=== PATIENT | female | born 1980 | race Caucasian/White ===

== ENCOUNTER 2016-05-27 22:52 | Inpatient (IN) | payer OTHER ==
[2016-05-27] MEDS ORDERED: OXYTOCIN/RINGERS LACTATE 1,000 ML IV PRN (23:50)
[2016-05-27] MEDS ORDERED: LR 1,000 ML IV PRN (23:50)
[2016-05-27] MEDS ORDERED: TERBUTALINE SULFATE 1 MG/ML VIAL IV PRN (23:50)
[2016-05-28 00:52] LABS: % IMMATURE GRANULYOCYTES 1.1 % (0.0-1.1); ABSOLUTE IMMATURE GRANULOCYTES 0.18 10^3/uL (0.00-0.10); ADD DIFF? NO; ADD MORPH? NO; ADD SCAN? NO; ATYPICAL LYMPHOCYTE FLAG 0 (0-99); FRAGMENT RBC FLAG 0 (0-99); HEMATOCRIT 43.7 % (38.0-47.0); HEMOGLOBIN 14.6 g/dL (12.6-16.3); LEFT SHIFT FLG 10 (0-99); LIPEMIA HEMOLYSIS FLAG 80 (0-99); MEAN CELL HEMOGLOBIN 30.8 pg (27.9-34.1); MEAN CELL HEMOGLOBIN CONCENTR. 33.4 g/dL (32.4-36.7); MEAN CELL VOLUME 92.2 fL (81.5-99.8); MEAN PLATELET VOLUME 11.5 fL (8.7-11.7); PLATELET CLUMPS FLAG 0 (0-99); PLATELET COUNT 191 10^3/uL (150-400); RED BLOOD CELL COUNT 4.74 10^6/uL (4.18-5.33); RED CELL DISTRIBUTION WIDTH 13.9 % (11.5-15.2)
--- NOTE | 2016-05-28 01:08 | GHP ---
DATE OF ADMISSION: 05/27/2016 CHIEF COMPLAINT: Leakage of fluid. HISTORY OF PRESENT ILLNESS: The patient is a 36-year-old, 3, para 1, abortus 1, female at 3 8 weeks and 6 days estimated gestational age with estimated due date of June 04, 2016, who presents to labor and delivery with complaints of leakage of fluid. The patient reports having a gush of abdirashid ar fluid around 8:30 p.m. on the night of admission, with further leakage as well. This was confirm ed on admission with evidence of gross ruptured membranes. She reports contractions have begun in t he last hour. She reports contractions every couple of minutes at this time. She denies any vagina l bleeding and reports good movement. No other complaints. GBS negative. HISTORY: Spontaneous vaginal delivery in February 2013. History of spontaneous in 2014. This has been complicated by a single umbilical artery with normal growth scans throughout her and normal genetic testing. She also has gestational diabetes, type A1 controlled wi th diet. She has received the flu and Tdap vaccines. LABS: Blood type O positive, antibody screen negative, hematocrit 41, Pap normal, varicell a immune, rubella immune, RPR nonreactive, urine culture negative, hepatitis B surface antigen negat terry. HIV negative. Gonorrhea and chlamydia negative. One-hour GTT of 147 and 3-hour GTT of 74, 16 3, 164 and 149. GBS negative. PAST MEDICAL HISTORY: None. PAST SURGICAL HISTORY: None. ALLERGIES: No known drug allergies. OBJECTIVE: VITAL SIGNS: Blood pressure 124/79, heart rate 86, respiratory rate 18, temperature 36. 5 degrees Celsius. heart rate tracing 120s with moderate variability, and accelerations prese nt and no decelerations. Contractions q.3 minutes on admission, but then slightly irregular on the monitor. GENERAL: No acute distress. Well-developed, well-nourished female. CHEST: Clear to aus cultation bilaterally. CARDIOVASCULAR: Regular rate and rhythm. ABDOMEN: Gravid and nontender. GENITOURINARY: Cervix 3 cm, 60% effaced, and -3 station. ASSESSMENT: Patient is a 36-year-old, 3, para 1, abortus 1, female with spontaneous rupture of membranes at term. PLAN: 1. status is currently reassuring. 2. Spontaneous ruptured membranes confirmed. Patient appears to be pepe now. We will liz nue with expected management of labor and augment if needed with Pitocin. 3. GBS negative. /[id number]/MODL
[2016-05-28] MEDS ORDERED: BUPIVACAINE 0.25% 30 ML SDV ONE (02:13)
[2016-05-28] MEDS ORDERED: fentaNYL 2MCG/ML/BUP 0.1% RTU 100 ML BAG EP ONE (02:13)
[2016-05-28] MEDS ORDERED: PHENYLEPHRINE HCL 100 MCG/ML SYR ONE (02:13)
[2016-05-28] MEDS ORDERED: AMMONIA AROMATIC 1 EACH AMP IH ONE (02:14)
[2016-05-28] MEDS ORDERED: LIDOCAINE 1% 30 ML SDV ONE (02:14)
[2016-05-28] MEDS ORDERED: TERBUTALINE SULFATE 1 MG/ML VIAL ONE (02:14)
[2016-05-28] MEDS ORDERED: OXYTOCIN 10 UNIT/ML VIAL ONE (02:15)
[2016-05-28] MEDS ORDERED: MISOPROSTOL 200 MCG TAB ONE (02:15)
[2016-05-28] MEDS ORDERED: fentaNYL 100 MCG/2 ML INJ ONE (02:23)
[2016-05-28] MEDS ORDERED: ONDANSETRON 4 MG/2 ML VIAL IVP PRN (03:17)
[2016-05-28] MEDS ORDERED: PHENYLEPHRINE HCL 100 MCG/ML SYR IVP PRN (03:17)
[2016-05-28] MEDS ORDERED: NALOXONE HCL 0.4 MG/ML INJ IVP PRN (03:17)
[2016-05-28] MEDS ORDERED: METOCLOPRAMIDE 10 MG/2 ML VIAL IVP PRN (03:17)
--- NOTE | 2016-05-28 03:17 | PREANESOB ---
Obstetric Pre-Anesthesia Info - General Info Proposed Procedure: SAB for labor : 3 Para: 1 - Info Status: Full Term, Wagner Monitors: External FHR Pattern: Reassuring - Labor Status Cervical Dilation per last OB SVE: 9 PIH: No Magnesium Sulfate in Use: No Indications for Labor Analgesia: Pain Control Labor Epidural: No (Cervical dilation nearly complete, rapid labor. Will do SAB instead of epidural.) Anesthesia Allergies/Adverse Reactions: Allergy/AdvReac Type Severity Reaction Status Date / Time No Known Allergies Allergy Verified 12/19/14 06:13 Visit Medications: Generic Name Dose Route Start Last Admin Trade Name Freq PRN Reason Stop Dose Admin Lactated Ringer's 1,000 mls @ 0 mls/hr 05/27/16 23:50 Lr IV 11/23/16 23:49 PRN PRN SEE PROTOCOL CONDITIONS Protocol Per Protocol Oxytocin/Lactated Ringer's 1,000 mls @ 150 mls/hr 05/27/16 23:50 Pitocin 20 Units/Lr (Premix) IV PRN PRN Post- bleeding Ibuprofen 600 mg 05/27/16 23:50 Motrin PO 11/23/16 23:49 Q6HRS PRN post , inflammation Terbutaline Sulfate 0.25 mg 05/27/16 23:50 Brethine IV 11/23/16 23:49 ONCE PRN Tachysystole Discontinued Medications Generic Name Dose Route Start Last Admin Trade Name Freq PRN Reason Stop Dose Admin Ammonia (Aromatic Spirit) Confirm 05/28/16 02:14 Ammonia Aromatic Administered 05/28/16 02:15 Dose 1 each IH .STK-MED ONE Bupivacaine HCl Confirm 05/28/16 02:13 Sensorcaine 0.25% Sdv Administered 05/28/16 02:14 Dose 30 ml .ROUTE .STK-MED ONE Ephedrine Sulfate Confirm 05/28/16 02:14 Ephedrine Sulfate Administered 05/28/16 02:15 Dose 50 mg .ROUTE .STK-MED ONE Fentanyl Confirm 05/28/16 02:23 Sublimaze Administered 05/28/16 02:24 Dose 100 mcg .ROUTE .STK-MED ONE Fentanyl/Bupivacaine HCl Confirm 05/28/16 02:13 Fentanyl/Bupivacaine/Ns 2 Mcg/Ml 0.1% (Premix Administered 05/28/16 02:14 Dose 100 ml EP .STK-MED ONE Lidocaine HCl Confirm 05/28/16 02:14 Lidocaine Hcl 1% Administered 05/28/16 02:15 Dose 30 ml .ROUTE .STK-MED ONE Misoprostol Confirm 05/28/16 02:15 Cytotec Administered 05/28/16 02:16 Dose 1,000 mcg .ROUTE .STK-MED ONE Oxytocin Confirm 05/28/16 02:15 Pitocin Administered 05/28/16 02:16 Dose 30 unit .ROUTE .STK-MED ONE Phenylephrine HCl Confirm 05/28/16 02:13 Sony-Synephrine Administered 05/28/16 02:14 Dose 1,000 mcg .ROUTE .STK-MED ONE Terbutaline Sulfate Confirm 05/28/16 02:14 Brethine Administered 05/28/16 02:15 Dose 1 mg .ROUTE .STK-MED ONE - Focused Exam Height/Weight (Nursing): Height 167.64 cm Weight 78.471 kg Labs: 05/28/16 00:10 Patient ABO/Rh O POSITIVE 05/28/16 00:10
--- NOTE | 2016-05-28 03:19 | POSTANESTH ---
Post Anesthetic Evaluation Cardiovascular Status: Normal, Stable, Similar to Pre-Op Cond Respiratory Status: Normal, Stable, Similar to Pre-op Cond. Level of Consciousness/Mental Status: Can Participate in Eval, Alert and Oriented Pain Control: Adequate, Prn Tx Ordered Nausea/Vomiting Control: Adequate, Prn Tx Ordered Complications Possibly Related to Anesthesia: None Noted (Excellent analgesia within 5 minutes of spinal injection. Delivered about 20 minutes later.)
--- NOTE | 2016-05-28 03:24 | OBPROC ---
- Labor and Delivery Onset of Contractions Date: 05/27/16 Onset of Contractions Time: 21:00 Onset of Contractions Type: Spontaneous Rupture of Membranes Date: 05/27/16 Rupture of Membranes Time: 20:30 Rupture of Membranes Type: Spontaneous Amniotic Fluid Color: Clear Dilation Complete Time: 02:45 Delivery Type: Spontaneous Placenta Delivery Date: 05/28/16 Placenta Delivery Time: 02:57 Episiotomy/Laceration: 1st Degree, Other (Specify) (midline labial) Repair: 3-0, Vicryl (figure of eight stitch x 2 to reapproximate 1st degree; one interrupted to reapproximate labial laceration. all hemostatic.) EBL: 200cc Complications: Other (Specify) (compound left arm) - Medications Labor Augmentation/Induction Meds Used: None Anesthesia: Spinal - [place]haw Info B Delivery Date: 05/28/16 Delivery Time: 02:52 Sex of : Female Score (1 Min): 8 Score (5 Min): 9 (Patient pushed very well and delivered her baby easily in PER position w/ left anterior compound hand. Baby delivered, placed on maternal abdomen, and cord clamped x 2 and cut after delayed cord clamping. Cord blood obtained, placenta delivered easily and intact. Cervix and vaginal redd intact, perineum had a small 1st degree and labial tear that were repaired and hemostatic.)
[2016-05-28] MEDS ORDERED: ACETAMINOPHEN 325 MG TAB PO PRN (03:25)
[2016-05-28] MEDS ORDERED: SIMETHICONE 80 MG TAB CHEW PO PRN (03:25)
[2016-05-28] MEDS ORDERED: HYDROCORTISONE 0.5% CREAM TP PRN (03:25)
[2016-05-28] MEDS ORDERED: LR 500 ML IV SCH (03:30)
[2016-05-28] MEDS ORDERED: METHYLERGONOVINE MAL 0.2 MG/ML INJ ONE (05:23)
[2016-05-28] MEDS ORDERED: HEMABATE 250 MCG/1 ML AMP IM ONE (05:32)
[2016-05-28] MEDS ORDERED: DIPHENOXYLATE/ATROPINE LOMOTIL 1 TAB PO PRN (05:41)
[2016-05-28] MEDS ORDERED: DIPHENOXYLATE/ATROPINE LOMOTIL 1 TAB ONE (05:44)
[2016-05-28] MEDS ORDERED: OXYTOCIN/RINGERS LACTATE 1,000 ML IV SCH (06:30)
[2016-05-28] MEDS: METHYLERGONOVINE MAL 0.2 MG TAB PO SCH ×5 (06:42→21:54)
[2016-05-28] MEDS: IBUPROFEN 600 MG TAB PO PRN ×3 (08:07→20:25)
[2016-05-28 15:38] VITALS: O2SAT 95
[2016-05-29] MEDS: IBUPROFEN 600 MG TAB PO PRN ×4 (01:45→21:46)
[2016-05-29] MEDS: METHYLERGONOVINE MAL 0.2 MG TAB PO SCH (01:45)
[2016-05-29] MEDS: DOCUSATE SODIUM 100 MG CAP PO PRN ×2 (08:14→21:46)
--- NOTE | 2016-05-29 10:04 | SOAPPROG ---
SOAP Progress Note Assessment/Plan: Assessment: PPD#1, complicated by PPH, EBL 1300 Doing well Vitals stable, bleeding minimal, denies symptoms of anemia s/p tdap and flu Rh pos, GBS neg Plan: Routine care Plan discharge PPD#2 05/29/16 10:01 Subjective: Feels great. Baby is under bili lights. Minimal bleeding. Milk hasn't come in yet, doing donor milk. Objective: Vital Signs Temp Pulse Resp BP Pulse Ox 36.2 C 85 16 109/68 95 05/29/16 08:00 05/29/16 08:00 05/29/16 08:00 05/29/16 08:00 05/29/16 08:00 Laboratory Results 05/28/16 00:10 05/28/16 05/29/16 05/30/16 05:59 05:59 05:59 Intake Total 2600 Output Total 3850 Balance -1250 Gen: alert, awake, ambulating Breasts: soft Abd: soft, nontender Ext: no edema ICD10 Worksheet Patient Problems: Problems Problem Status Onset Active labor at term Acute Vaginal delivery Acute
[2016-05-29] MEDS: HYDROCODONE/APAP 5/325 TAB PO PRN ×2 (16:40→21:46)
[2016-05-30] MEDS: HYDROCODONE/APAP 5/325 TAB PO PRN (02:51)
[2016-05-30] MEDS: IBUPROFEN 600 MG TAB PO PRN ×2 (06:12→12:18)
[2016-05-30] MEDS: DOCUSATE SODIUM 100 MG CAP PO PRN (09:30)
[2016-05-30 09:55] VITALS: BP 115/76; PULSE 78; RESP 17; TEMP 97.8
--- NOTE | 2016-05-30 10:45 | SOAPPROG ---
SOAP Progress Note Assessment/Plan: Assessment: PPD#2, complicated by PPH, EBL 1300 Doing well Vitals stable, bleeding minimal, denies symptoms of anemia s/p tdap and flu Rh pos, GBS neg Plan: Discharge home. Pt will be boarder until baby is ready to discharge (under lights) Pt has iron at home, advised to take for 2-3 months Continue PNV while Rx for motrin/colace Routine precautions discussed F/u 4 weeks for wellness visit and 6 weeks for pp visit 05/29/16 10:01 05/30/16 10:42 05/30/16 10:44 Subjective: Feels ready to go home. Milk hasn't come in yet but is continuing to supplement. Minimal bleeding. No dizziness or feeling lightheaded, overall is feeling really well. Objective: Vital Signs Temp Pulse Resp BP Pulse Ox 36.6 C 78 17 115/76 95 05/30/16 09:00 05/30/16 09:00 05/30/16 09:00 05/30/16 09:00 05/29/16 08:00 Laboratory Results 05/28/16 00:10 05/29/16 05/30/16 05/31/16 05:59 05:59 05:59 Intake Total 2600 Output Total 3850 Balance -1250 Gen: NAD, alert, awake Resp: unlabored CV: reg rate Breasts: soft Abd: soft,nontender, uterus firm below U Ext: no edema ICD10 Worksheet Patient Problems: Problems Problem Status Onset Active labor at term Acute Vaginal delivery Acute
== END 2016-05-30 12:57 | disposition home or self-care (01) | DRG 774 ==
LOC: FLD 22:52 → OBSVTOIN 22:52 → FOB 05-28 09:45
PROVIDERS: ADMIT Obstetrics & Gynecology; ATTEND Obstetrics & Gynecology
PROC: 10E0XZZ Delivery of Products of Conception, External Approach (ICD-10-PCS; principal; 2016-05-28)
PROC: 0HQ9XZZ Repair Perineum Skin, External Approach (ICD-10-PCS; principal; 2016-05-28)
DX: O64.5XX0 Obstructed labor due to compound presentation, not applicable or unspecified (principal); O70.0 First degree perineal laceration during delivery; O72.2 Delayed and secondary postpartum hemorrhage; Z3A.39 39 weeks gestation of pregnancy; Z37.0 Single live birth
CPT/HCPCS: J2210; J2370; J2590; J3010; J3105